=== PATIENT | female | born 1940 | race Two or more races ===

== ENCOUNTER 2021-02-13 07:19 | Outpatient (CLI) | payer OTHER ==
[~2021-02-13 07:19] MED LIST: EVISTA60 MG PO
== END 2021-02-13 07:23 | disposition home or self-care (01) ==
LOC: TOM 07:19
PROVIDERS: ATTEND Internal Medicine Gastroenterology
DX: K44.9 Diaphragmatic hernia without obstruction or gangrene (principal); K56.690 Other partial intestinal obstruction; R19.5 Other fecal abnormalities